=== PATIENT | female | born 1940 | race Hispanic/Latino ===

== ENCOUNTER 2018-11-09 09:09 | Day surgery (SDC) | payer MEDICARE, BC ==
[2018-11-07 17:34] VITALS: BMI 24.3
[2018-11-09] MEDS ORDERED: Sodium Chloride 0.9% 1,000 ML IV SCH (09:30)
[2018-11-09] MEDS ORDERED: Propofol 10 mg/ml Inj (20 ML) ONE (10:26)
[2018-11-09 12:18] VITALS: BP 141/73; PULSE 84; RESP 15; TEMP 97.6; O2SAT 97
== END 2018-11-09 12:22 | disposition home or self-care (01) ==
LOC: ENDO 09:09
PROVIDERS: ATTEND Specialist
DX: Z12.11 Encounter for screening for malignant neoplasm of colon (principal); K57.30 Diverticulosis of large intestine without perforation or abscess without bleeding; K64.4 Residual hemorrhoidal skin tags; K64.8 Other hemorrhoids; I10 Essential (primary) hypertension
CPT/HCPCS: 45378; J2001; J2704; J7030; J7040